=== PATIENT | male | born 1955 | race Caucasian/White ===

== ENCOUNTER 2016-09-19 14:59 | Emergency (ER) | payer MEDICARE, OTHER ==
[2016-09-19] MEDS ORDERED: DOXYCYCLINE HYCLATE 100 MG TABLET ONE (17:06)
--- NOTE | 2016-09-19 17:31 | US ---
Exam: Left lower extremity venous ultrasound COMPARISON: None INDICATION: Left leg swelling. FINDINGS: Examination was technically challenging due to patient unable to cooperate for the exam. He refused to lie down and therefore the examination was performed in a chair. The deep venous system of the left lower extremity was evaluated with color flow, compression, augmentation and spectral analysis. The deep venous system of the left lower extremity from the popliteal vein up to the proximal superficial femoral vein is widely patent. The common femoral vein could not be evaluated due to patient position. Augmentation was not performed in the calf, but proximal calf veins appear patent as well. IMPRESSION: Slightly limited exam as above, however there is no evidence of DVT within the left lower extremity. Report was uploaded to the EMR at 1727 hours 09/19/2016.
== END 2016-09-19 17:48 | disposition home or self-care (01) ==
LOC: ED 14:59
DX: L03.116 Cellulitis of left lower limb (principal); F84.0 Autistic disorder; F79 Unspecified intellectual disabilities; Z85.828 Personal history of other malignant neoplasm of skin
CPT/HCPCS: 99283 ×2; 93971; A9270